=== PATIENT | female | born 1965 | race Hispanic/Latino ===

== ENCOUNTER 2018-05-06 23:31 | Inpatient (IN) | payer OTHER ==
[2018-05-06] MEDS ORDERED: Lorazepam 2 MG/ML VIAL ONE ×2 (23:36→23:48)
[2018-05-06] MEDS ORDERED: levETIRAcetam In NaCl (Iso-Os) 1,500 MG in Premix Bag 1 BAG IVPB SCH (23:45)
[2018-05-07 00:09] LABS: Bilirubin Negative (Negative); Blood, Urine Trace (Negative); Clarity CLEAR (Clear); Glucose, Urine (Dipstick) Negative (Negative); Leukocyte Negative (Negative); Nitrite Negative (Negative); Protein, Urine (Dipstick) Trace mg/dL (Neg-Trace); Specific Gravity, Urine 1.013 (1.002-1.036); Urobilinogen 0.2 mg/dL (0.2-1.0); pH, Urine 5.5 (5.0-9.0)
[2018-05-07 00:12] LABS: Bacteria/HPF None Seen HPF (None Seen); Pathc Cast-AUWi Flag 2.47 (0-2.49); RBC/HPF 0-3 HPF (0-3); Squamous Epithelial 0-3 HPF (0-3); WBC/HPF 0-3 HPF (0-3)
[2018-05-07 00:17] LABS: Amphetamine Not Detected (NotDetected); Barbiturates Screen Not Detected (NotDetected); Benzodiazepine Screen Not Detected (NotDetected); Cocaine Metabolite Screen Not Detected (NotDetected); Hyaline Casts/LPF 4-6 HYALINE CAST LPF (0-3 Hyaline); Medtox Control Line Valid? VALID (VALID); Medtox Reader # READER 1; Methadone Not Detected (NotDetected); Methamphetamine Not Detected (NotDetected); Opiate Screen Not Detected (NotDetected); Oxycodone Screen Not Detected (NotDetected); Phencyclidine (PCP) Not Detected (NotDetected); THC/Cannabinoid Screen Not Detected (NotDetected); Tricyclic Screen Not Detected (NotDetected)
--- NOTE | 2018-05-07 00:18 | PDOC.FPRHP ---
- History of Present Illness Chief Complaint: seizure History of Present Illness: Ms. Dueñas presents from the [facility] with active seizures She is intubated and sedated at time of exam, history obtained from ems and guard. Earlier this evening she was reported to have a self resolving seizure in senior living , was [facility] for monitoring. Had another seizure at that time and ems was called, pt continued to seize from triage to trauma room, was not protecting airway with O2 saturation dropping down to the 70s, intubated at that time. ED Course: ativanx3, keppra, etomidate, tish+intubation - Allergies/Adverse Reactions Allergies Allergy/AdvReac Type Severity Reaction Status Date / Time iodine Allergy Verified 05/07/18 08:10 - History PMHx: likely DMII, HLD, hypokalemia PSHx: unknown FHx: unknown Social: [facility] senior living inmate - Review of Systems ROS unobtainable: due to endotracheal tube - Vital signs BP: 11/78 HR: 87 RR: 20 Tmax: 99 Pox: 100% on Vent Wt: 93kg - Physical Exam Constitutional: NAD, other (sedated, unresponsive to voice or painful stimuli) HEENT: normocephalic and atraumatic, conjunctiva clear, MMM, other (mildly reactive pupils) Neck: supple, trachea midline, no LAD Chest: no lesions Heart: RRR, normal S1/S2, no murmurs/rubs/gallops, pulses present, no edema Lungs: CTAB, no respiratory distress Abdomen: soft, bowel sounds present, no masses/distention Musculoskeletal: normal structure Skin: no rash/lesions, good turgor Heme/Lymphatic: no unusual bruising or bleeding, no purpura FMR H&P: Results - Labs Result Diagrams: 05/07/18 03:21 05/07/18 03:21 FMR H&P: A/P - Problem List (1) Status epilepticus Current Visit: Yes Status: Acute Code(s): G40.901 - EPILEPSY, UNSP, NOT INTRACTABLE, WITH STATUS EPILEPTICUS (2) Acute respiratory failure Current Visit: Yes Status: Acute Code(s): J96.00 - ACUTE RESPIRATORY FAILURE , UNSP W HYPOXIA OR HYPERCAPNIA (3) DMII (diabetes mellitus, type 2) Current Visit: Yes Status: Acute (4) HLD (hyperlipidemia) Current Visit: Yes Status: Acute Code(s): E78.5 - HYPERLIPIDEMIA, UNSPECIFIED - Plan Status epilepticus - refractory to ativan 6mg total, loading dose of keppra given in ED 1500 mg - obtain further history from [facility] when opening in AM Acute hypoxic respiratory failure - failure to protect airway during seizure, saturation dropping to 70% - intubated 05/07 with tish and etomidate - Current vent settings: SIMV, PEEP 6.4, peak 2.8, I:E 1:2:1, ftot 20, vte 556 - currently requiring fentanyl for sedation DMII - continue metformin - mild SSI HLD - aware, continue home meds hx of pseudoseizure - aware, continue to monitor code: full, unable to confirm with pt ppx: mech, famotidine Disposition/LOS: admit to ICU, pulm consulted, monitor sedation and pressures FMR H&P: Upper Level - Pertinent history 52 yr old female with PMH of pseudoseizures, seizures, and diabetes presents from intermediate while having a reported active grand mal seizure. Apparently, this afternoon she had a seizure in her cell and was transferred to the [facility] office to be watched. She began having a seizure just before 10 pm and seized the whole way to the ER. She was given 2 mg IM Ativan and only slightly stopped. She was desatting to the 70s. Was given an oral airway and sats improved to 97. She continued to seize and was given additional 2 mg IV followed by 2 mg more IV Ativan. She was then intubated with tish and etomidate due to inability to control airway. - Pertinent findings ROS: unable to obtain PE: Gen: lying supine, intubated Eyes: pupils dilated by reactive to light Neck: supple, no lymphadenopathy Heart: RRR, no murmurs, rubs, gallops Lungs: CTAB, upper airway course breath sounds Abd: BS normal active, no palpable masses Ext: 2+ post tib pulses bilaterally, no edema benson Neuro: currently non responsive, intubated, non focal findings although sedated - Plan Date/Time: 05/07/18 0016 I, [Blanca Desir], have evaluated this patient and agree with findings/plan as outlined by sourcing internship resident. Pertinent changes/additions are listed here. 52 yr old female with status epilepticus Generalized convulsive status epilepticus -received 6 mg Ativan in ER -started on keppra 1500 mg IV -currently not requiring sedation but will consider fentanyl if needed -await records in AM from senior living Acute hypoxic respiratory failure 2/2 above -intubated, not currently requiring sedation -sats improved leukocytosis -most likely 2/2 seizure -obtain blood cultures Type 2 Diabetes -will place on SSI -qACHS accucheck -check A1C HLD -cont atorvastatin when taking PO PCP: unknown Code Status: Full, unable to discuss with patient DVT ppx: lovenox Diet: NPO Addendum - Attending - Attending Attestation Date/Time: 05/07/18 4812 I personally evaluated the patient and discussed the management with Dr. Thomas I agree with the History, Examination, Assessment and Plan documented above with any addition or exceptions noted below.
[2018-05-07 00:28] LABS: ALT (SGPT) 15 U/L (8-55); AST (SGOT) 21 U/L (5-34); Albumin 4.8 g/dL (3.5-5.0); Alkaline Phosphatase 75 U/L (40-150); Anion Gap 22 mmol/L (10-20); BUN (Urea Nitrogen) 12 mg/dL (7.0-18.7); Bilirubin, Total 0.3 mg/dL (0.2-1.2); Calc. Creatinine Clearance 0 mL/min (70-130); Carbon Dioxide 21 mmol/L (22-29); Chloride 105 mmol/L (98-107); Estimated GFR-MDRD 59; Globulin 4.2 g/dL (2.4-3.5); Glucose 206 mg/dL (70-105); Potassium 4.8 mmol/L (3.5-5.1); Sodium 143 mmol/L (136-145)
[2018-05-07 00:35] LABS: Band 18 % (5-11); Eosinophils 1 % (0-10); Hemoglobin 14.7 g/dL (12.0-16.0); Lymphocytes 21 % (21-51); MDiff Complete? YES; Mean Corpuscular HGB CONC 33.2 g/dL (32.0-36.0); Mean Corpuscular Hemoglobin 31.4 pg (27.0-31.0); Mean Corpuscular Volume 94.4 fL (78.0-98.0); Mean Platelet Volume 8.5 fL (7.4-10.4); Metamyelocyte 1 % (0-0); Monocytes 6 % (0-10); Neutrophil 53 % (42-75); PLT Morphology Comment Appears Adequate; Platelet Count 332 thou/uL (130-400); RBC Distribution Width 13.2 % (11.5-14.5); Red Blood Cell (RBC) Count 4.69 mill/uL (4.20-5.40); White Blood Cell (WBC) Count 20.7 thou/uL (4.8-10.8)
[2018-05-07 00:48] LABS: Analyzer IN Cardio ER; Base Excess (BEa) -1.8 mEq/L (-2.0 to +3.0); CO2 Tension 30.4 mmHg (35.0-45.0); Calcium, Ionized 1.11 mmol/L (1.12-1.30); Carboxyhemoglobin (COHb) 0.3 gm% (0.0-3.0); O2 Tension (PaO2) 254.8 mmHg (80.0-100.0); pH, Arterial 7.46 (7.35-7.45)
[2018-05-07 01:10] LABS: Puncture Site RRA
[2018-05-07] MEDS ORDERED: fentaNYL Citrate/PF 2,000 MCG in Sodium Chloride 0.9% 60 ML IV SCH (01:21)
--- NOTE | 2018-05-07 01:53 | PDOC.EVN ---
Addendum - Attending - Attending Attestation Date/Time: 05/07/18 0134 I personally evaluated this patient and discussed the management with Dr. Thomas I agree with the History, Examination, Assessment and Plan documented per [facility] HX and PE. 52 yo female inmate brought over from [facility] with reported prolonged seizure activity initially felt to be pseudo seizure. Patient with limited available PMHX due to closed/locked alf [facility] [place]. Patient with reported history of seizures / pseudo seizures and anticonvulsant meds recently held. Patient with reported 2 hours of seizure activity and transported to ER where she was found to be actively convulsing and given ativan 2mg x 3 and loaded with Keppra 1500 mg. Patient with poor oxygen saturation and electively intubated to protect airway with etomidate and rocuronium. CT of head with apparent prior bilateral frontal lobe CVA with right sided artifact from questionable aneurysm clip(official read Pending). Physical exam without any focal neurologic findings albeit limited by sedation. Patient currently well oxygenated unresponsive without any current sedation will rec fentanyl prn due to relatively low BP. More information should be available in AM when access to alf medical records will be available. Note current listed RX atorvastatin ASA and KCL query of EMR without any prior records.
[2018-05-07] MEDS ORDERED: Ondansetron PF 4 MG/2 ML Vial IVP PRN (02:51)
[2018-05-07] MEDS ORDERED: Ondansetron ODT 4 MG TAB PO PRN (02:51)
[2018-05-07] MEDS ORDERED: Ventilator Sedation Protocol 1 EACH FS ONE (02:51)
[2018-05-07] MEDS ORDERED: Fentanyl BOLUS 250 ML IVPB PRN (02:55)
[2018-05-07] MEDS ORDERED: DISCONTINUE PREVIOUS NARCOTIC PAIN MEDICATIONS AND BENZODIAZEPINES FS SCH (02:55)
[2018-05-07] MEDS ORDERED: Lorazepam 2 MG/ML VIAL SLOW IVP PRN (02:55)
[2018-05-07] MEDS ORDERED: Propofol 1,000 MG/100 ML VIAL IV PRN (02:55)
[2018-05-07] MEDS ORDERED: Morphine 2 MG/ML SYRINGE SLOW IVP PRN (02:55)
[2018-05-07] MEDS ORDERED: Propofol BOLUS 1,000 MG/100 ML VIAL IV PRN (02:55)
[2018-05-07 03:30] LABS: #Eosinphils 0.1 thou/uL (0.0-0.7); #Lymphocytes 1.6 thou/uL (1.20-3.40); #Monocytes 0.9 thou/uL (0.11-0.59); #Neutrophils 8.9 thou/uL (1.40-6.50); %Basophils 0.3 % (0.0-1.0); %Eosinophils 0.5 % (0.0-10.0); %Lymphocytes 14.2 % (21.0-51.0); %Monocytes 7.5 % (0.0-10.0); %Neutrophils 77.5 % (42.0-75.0); Hemoglobin 13.2 g/dL (12.0-16.0); Mean Corpuscular HGB CONC 33.8 g/dL (32.0-36.0); Mean Corpuscular Hemoglobin 31.5 pg (27.0-31.0); Mean Corpuscular Volume 93.2 fL (78.0-98.0); Mean Platelet Volume 8.3 fL (7.4-10.4); Platelet Count 243 thou/uL (130-400); Red Blood Cell (RBC) Count 4.18 mill/uL (4.20-5.40); White Blood Cell (WBC) Count 11.4 thou/uL (4.8-10.8)
[2018-05-07] MEDS: Lactated Ringer's 1,000 ML IV SCH ×2 (03:50→14:58)
[2018-05-07 03:51] LABS: ALT (SGPT) 13 U/L (8-55); AST (SGOT) 16 U/L (5-34); Albumin 4.1 g/dL (3.5-5.0); Alkaline Phosphatase 60 U/L (40-150); Anion Gap 15 mmol/L (10-20); BUN (Urea Nitrogen) 13 mg/dL (7.0-18.7); Bilirubin, Total 0.7 mg/dL (0.2-1.2); Calc. Creatinine Clearance 0 mL/min (70-130); Calcium 9.1 mg/dL (7.8-10.44); Carbon Dioxide 20 mmol/L (22-29); Chloride 108 mmol/L (98-107); Estimated GFR-MDRD 84; Globulin 3.3 g/dL (2.4-3.5); Glucose 128 mg/dL (70-105); Potassium 3.4 mmol/L (3.5-5.1); Protein, Total 7.4 g/dL (6.0-8.3); Sodium 140 mmol/L (136-145)
[2018-05-07] MEDS ORDERED: Dextrose 50% Abboject 50 ML SYRINGE SLOW IVP PRN (04:16)
[2018-05-07] MEDS ORDERED: HumaLOG 300 UNITS/3 ML VIAL SC PRN ×2 (04:16)
[2018-05-07] MEDS ORDERED: Dextrose 5% in Water 1,000 ML IV PRN (04:16)
[2018-05-07] MEDS ORDERED: CCU Electrolyte Replacement 1 EACH IVPB ONE (05:47)
[2018-05-07] MEDS ORDERED: Magnesium 2 GM/NS 0.9% 100 ML 2 GM in Premix Bag 1 BAG IVPB PRN (05:55)
[2018-05-07] MEDS ORDERED: Potassium Chloride 40 MEQ in Premix Bag 1 BAG IVPB PRN (05:55)
[2018-05-07] MEDS ORDERED: Potassium Chloride 20 MEQ TAB PO PRN (05:55)
[2018-05-07] MEDS ORDERED: Potassium Chloride 40 MEQ in Sodium Chloride 0.9% 250 ML 250 ML IVPB PRN (05:55)
[2018-05-07] MEDS ORDERED: CCU ELECTROLYTE REPLACEMENT PROTOCOL FS PRN (05:55)
[2018-05-07] MEDS ORDERED: Potassium Phosphate 12 MMOL in Sodium Chloride 0.9% 250 ML 250 ML IV PRN (05:55)
[2018-05-07] MEDS ORDERED: Potassium Phosphate 9 MMOL in Sodium Chloride 0.9% 100 ML IVPB PRN (05:55)
[2018-05-07] MEDS ORDERED: Magnesium Oxide 400 MG TAB PO PRN ×2 (05:55)
[2018-05-07] MEDS ORDERED: Potassium Phosphate 15 MMOL in Sodium Chloride 0.9% 250 ML 250 ML IV PRN (05:55)
[2018-05-07] MEDS ORDERED: Lorazepam 2 MG/ML VIAL ONE (06:05)
--- NOTE | 2018-05-07 07:37 | PDOC.EVN ---
Event Note - Event Note Event Note: Patient seen around 0400. Patient on some sedation with fentanyl but able to follow commands. Patient nodding that she can feel sensation on RUE/RLE/LLE/LUE. Movement expressed in RUE/RLE upon command. No movement of LUE/LLE. Reflexes intact to painful stimuli in bilateral LE although more pronounced in RLE. Pt nodding yes that she is able to walk prior to this hospitalization. Prelim Vrad Brain CT read reveals no acute intracranial abnormalities however there is noted to be encephalomalacia associated with old bilateral frontal lobes, left ant temporal and parietal lobes thought to be 2/2 to prior infarcts. There does appear to be old aneurysm clip in region on anterior cerebral arteries. Will place order for urgent MRI. MAP maintaining above 65, most currently 82. Will stay course with blood pressure but consider pressor agent if MAP below 65. Addendum - Attending - Attending Attestation Date/Time: 05/07/18 1601 I personally evaluated the patient and discussed the management with I agree with the History, Examination, Assessment and Plan documented above with any addition or exceptions noted below. Will ask Neurology consult r/o acute CVA verse Todds paresis post ictal.
[2018-05-07 08:23] LABS: Actual Bicarbonate (HCO3a) 24.1 mEq/L (22-28); Base Excess (BEa) 2.2 mEq/L (-2.0 to +3.0); CO2 Tension 29.4 mmHg (35.0-45.0); Calcium, Ionized 1.11 mmol/L (1.12-1.30); Carboxyhemoglobin (COHb) 0.8 gm% (0.0-3.0); Hemoglobin (Hb) 13.1 g/dL (12.0-16.0); O2 Tension (PaO2) 69.4 mmHg (80.0-100.0); Potassium - ABG Lab 3.18 mmol/L (3.70-5.30); pH, Arterial 7.53 (7.35-7.45)
--- NOTE | 2018-05-07 08:34 | PDOC.EVN ---
Event Note - Event Note Event Note: BP stable responding to commands moves extremities on both side, weaker on L Will plan to decrease sedation and extubate this AM pending pulm recs Will consulted Neurology and cont Marcio anticipate MRI pending Radiology recs because of possible aneurysm clip on CT, awaiting official read, and anticipate continuous EEG
[2018-05-07] MEDS: Famotidine 20 MG TAB PO SCH ×2 (08:51→21:20)
[2018-05-07] MEDS: levETIRAcetam In NaCl (Iso-Os) 1,000 MG in Premix Bag 1 BAG IVPB SCH ×2 (08:51→21:19)
[2018-05-07] MEDS: Famotidine/PF 20 mg/2ml Vial SLOW IVP SCH ×2 (08:51→21:20)
--- NOTE | 2018-05-07 09:58 | CT ---
PRELIMINARY REPORT/[facility]/EMERGENTY AFTER-HOURS PROCEDURE CT Head Without Contrast EXAM DATE/TIME: 05/07/2018 12:58 AM CLINICAL HISTORY: 52 years old, female; Signs and symptoms; Other: Seizure; Patient HX: Er 11; . 52 y/o f presents [facility] for sudden onset of seizures this evening. She has had multiple seizures since onset. P T is reported to have been on "medical watch. " PT is seizing on arrival to ed, and historian notes c urrent seizure began approx 15 min ago. TECHNIQUE: Axial computed tomography images of the head/brain without contrast. COMPARISON: No relevant prior studies available. FINDINGS: Brain: Areas of encephalomalacia within the frontal lobes bilaterally, as well as within the left ant erior temporal lobe and left parietal lobe, likely secondary to prior infarctions. No mass, hemorrhag e, or acute infarction. Ventricles: Normal. Bones/joints: Normal. Sinuses: Normal as visualized. Mastoid air cells: Normal as visualized. Soft tissues: Normal. Vasculature: Changes of prior left temporal craniotomy with aneurysm clip placement in the region of the proximal anterior cerebral arteries. IMPRESSION: No acute intracranial abnormality. Thank you for allowing us to participate in the care of your patient. Dictated and Authenticated by: Chemo Anderson MD 05/07/2018 2:02 AM Central Time ([place] [employer] [place]) FINAL REPORT EMERGENT AFTER HOURS NONCONTRAST CT HEAD: DATE: 05/07/2018. HISTORY: Sudden onset of seizures this evening. History of multiple prior seizures. COMPARISON: None available. IMPRESSION: 1. Large bifrontal areas of encephalomalacia much greater on the left with encephalomalacia involvin g the anterior left temporal lobe and focal area of encephalomalacia involving the left parietal lobe . Findings are likely attributable to prior areas of infarction. 2. Postsurgical changes related to left frontotemporal craniotomy defect with aneurysm clip in the m idline and to the left of midline in a supraclinoid location. 3. Calcifications left anterior frontal lobe likely related to dystrophic calcifications. There is mild ex vacuo dilatation anterior horn of each lateral ventricle greater on the left. 4. No acute intracranial abnormality is demonstrated. 5. Findings are in agreement with the preliminary report by BALDEMAR. POS: IBRAHIMA
--- NOTE | 2018-05-07 11:26 | RAD ---
PORTABLE AP CHEST XRAY: DATE: 05/07/2018. HISTORY: Sudden onset of seizure this morning. COMPARISON: None available. FINDINGS: Endotracheal tube is noted in place. The patient is rotated, but the tip of the endotracheal tube is probably within the region of the right mainstem bronchus. There is volume loss involving the left hemithorax with mild elevation of the left hemidiaphragm. There is mild increase in perihilar inters titial densities, of which is related to depth of inspiration and portable technique. The right lung otherwise appears clear. Osseous structures are intact. Nasogastric tube is noted in place with ti p overlying the expected location of the distal aspect of the gastric antrum or pylorus of the stomac h. IMPRESSION: 1. Endotracheal tube noted in place with tip overlying the expected location of the right mainstem b ronchus with the tip of the endotracheal tube at the level of the T6 vertebral body. Endotracheal tu be should be withdrawn. 2. Shallow depth of inspiration, but there does appear to be a greater degree of volume loss in the left hemithorax with mild interstitial and patchy densities present probably related to volume loss. Followup chest x-ray after repositioning of the endotracheal tube is recommended. 3. The above findings concerning positioning of the endotracheal tube were discussed with Heather in the CCU on 05/07/2018 at 0926 hours. She noted that the endotracheal tube had been withdrawn. CODE CR POS: ROMMEL
--- NOTE | 2018-05-07 12:13 | CON ---
DATE OF CONSULTATION: 05/07/2018 SERVICE: Pulmonary Medicine. REASON FOR CONSULT: ICU patient. HISTORY OF PRESENT ILLNESS: The patient is a 52-year-old female with past medical history significant for both seizures and pseudoseizures. Recently, she was worked up for seizure disorder. She had some pseudoseizures in that workup. Apparently, all of her antiepileptic drugs were discontinued. In this setting, she went back to her intermediate unit. She then had a true seizure. This was observed for a period of over an hour before she was transported to the emergency department. She was brought here by a van. All told, she was likely having seizure for 90 to 120 minutes before it was finally broken. She was intubated. Overnight, her mentation has improved a little bit. She is actually following some simple commands, but remains in a postictal state. She has been on no sedation since she has been here on mechanical ventilation without any difficulties. She cannot provide any additional elements of the history at this point. There are no reports of fevers. She cannot have an MRI right now because it is not clear whether or not she has aneurysmal clips. PAST MEDICAL HISTORY: 1. Seizure disorder. 2. Pseudoseizures. 3. Type 2 diabetes mellitus. 4. Dyslipidemia. 5. History of hypokalemia. PAST SURGICAL HISTORY: Unknown. SOCIAL HISTORY: Negative for alcohol, tobacco, or illicit drug use currently. She is a [employer] [facility] inmate. FAMILY HISTORY: Noncontributory. ALLERGIES: IODINE. MEDICATIONS: List of her inpatient medications was reviewed. I have bumped the dose of her Keppra to 1500 twice daily, which apparently is what she uses at home. REVIEW OF SYSTEMS: Cannot be obtained as the patient is currently intubated and postictal. PHYSICAL EXAMINATION: VITAL SIGNS: Afebrile, pulse 70, blood pressure 135/72, respirations 13, and saturation 99% on room air. Temperature maximum is 100.0 and it has been climbing for the duration of the evening. LABORATORY DATA: WBC 11.4 and downtrending, hemoglobin 13.2, and platelets 243,000. PH 7.46, pCO2 of 30.4, pO2 of 254 on 100% FiO2 at that time. Potassium 3.4. Basic metabolic profile and liver function studies were otherwise unremarkable. Prolactin 37.5, elevated. TSH 2.1. Magnesium 1.7. Hemoglobin A1c 1.7. Of note, her anion gap on presentation was over 22, likely corresponding to an elevated lactate, which was not checked. Urinalysis is unremarkable. Urine drug screen is negative. IMAGING DATA: 1. CT of the brain demonstrates no blood. 2. Chest x-ray demonstrates right mainstem airway. She has volume loss on the left. There is good aeration on the right. Low lung volumes accentuate interstitial markings. Enteric catheter courses midline below the level of the diaphragm. ASSESSMENT: 1. Acute hypoxic respiratory failure, minimal. 2. Aspiration pneumonitis versus community-acquired pneumonia. 3. Seizure, prolonged. 4. Pseudo-seizure. DISCUSSION AND PLAN: We will continue our antiepileptic drugs. We will increase the dose to 1500 mg of Keppra twice daily. The patient is coming around very slowly. This is consistent with a postictal state and I am doubtful this was a pseudoseizure event given how comfortable she is on mechanical ventilation with no sedation. Additionally, she had very severe electrolyte derangement consistent with a true seizure. As such, on discharge from the hospital, she will likely need to be back on her medications. MRI is not necessary in this setting as she is now moving her left upper and lower extremities. My suspicion is that she had some degree of Scott's paralysis, which is resolving. Pulmonary/Critical Care will continue to follow along in this location, but the thing that prevents us from extubating the patient at this point is her continued decreased mentation, which is improving. CRITICAL CARE TIME: 30 minutes. Job ID: [id number]
[2018-05-07 12:58] LABS: Puncture Site RRA
[2018-05-08] MEDS: Lactated Ringer's 1,000 ML IV SCH ×2 (01:19→09:44)
--- NOTE | 2018-05-08 01:39 | CON ---
DATE OF CONSULTATION: 05/07/2018 CHIEF COMPLAINT: Seizure, possible status epilepticus, and left-sided weakness. HISTORY OF PRESENT ILLNESS: The patient is unable to give much history, she is intubated and is on a ventilator. The patient apparently was brought in from the [facility] at the [facility] with active seizures. Per chart, the patient was noted to have self resolving seizure in the residential, was sent to the [facility] office was monitoring, she then had another seizure, EMS was called. The patient continues to seize from triage to trauma room not protecting her airway. Her O2 saturations were dropping and she went into the respiratory failure and she was intubated. Per ER chart, the patient was in status for approximately 15 minutes or so and she has received Ativan and her seizures subsided after administration of Keppra. Also notable is the patient was suspected as having pseudoseizure versus true seizure and about 2 weeks ago, Keppra was stopped by her neurologist. The patient was having some left-sided weakness notable since admission. At this time, MRI cannot be done immediately due to presence of aneurysm and plan is to extubate her provided she continues to be responsive. PAST MEDICAL HISTORY: Previous medical history per chart is diabetes, hypertension, and hyperlipidemia. MEDICATIONS: At the residential are; 1. Metformin 500 mg b.i.d. 2. Atorvastatin 20 mg per day. 3. Potassium chloride 10 mEq per day. 4. Ibuprofen 800 mg t.i.d. PAST SURGICAL HISTORY: She seemed to have had aneurysm based on the CT scan, this aneurysm seems to have been kicked and no other surgical history is available. FAMILY HISTORY: Unavailable. ALLERGIES: NO KNOWN DRUG ALLERGIES PER CHART. SOCIAL HISTORY: She is in the adult residential system as an inmate. As that is unclear if she is a smoker or alcoholic. REVIEW OF SYSTEMS: Unable to obtain. LABORATORY RESULTS: White count 11.4, hemoglobin 13.2, hematocrit 38.9, and platelets 243. Chemistry; sodium 140, potassium 3.4, chloride 108, bicarb 20, BUN 13, creatinine 0.73, prolactin 37.51, and TSH 2.1. Liver functions are within normal limit. UA is negative and toxicology screen is negative. CT of the head was performed and on the CT scan, she has evidence of encephalomalacia within frontal lobes bilaterally as well as within the left anterior temporal lobe, left parietal lobe likely secondary to prior infarcts and prior left temporal craniotomy with aneurysm clip placement in the region and of the proximal anterior cerebral artery and there is also classification within the left anterior frontal lobe likely related to dystrophic calcifications. Mild ex-vacuo dilatation, anterior horn of each lateral ventricle greater on the left. Chest x-ray showed shallow depth of inspiration with volume loss in the left hemithorax and endotracheal tube placement. PHYSICAL EXAMINATION: VITAL SIGNS: Blood pressure was 135/75, pulse is 95. The patient is afebrile and she is on mechanical ventilator. The patient was examined off sedation and temperature is 98.6 degrees Fahrenheit. GENERAL APPEARANCE: She seems to be responsive to verbal commands and tries to follow commands. HEENT: Pupils are reactive, that is 4+ bilaterally. No facial asymmetry could be appreciated. Normal gag. CHEST: Clear. Vesicular breathing. ABDOMEN: Soft. NEUROLOGIC: She is responsive to verbal command. She is able to follow command and cranial nerve exam, pupils 4 mm bilaterally. No facial asymmetry was noted. Gag is present. Motor examination, bulk normal and tone normal. She seems to have an approximate gross strength of 4/5 on the right and 3-/5 on the left side and deep tendon reflexes were 2+ throughout. Sensory, cerebral, and gait not testable. IMPRESSION: She is a 52-year-old lady with prior history of diabetes and hypertension, and hyperlipidemia. She seems to have had a prior aneurysm repair in the left frontotemporal areas as noted in the CT findings. She also has large right frontal areas of encephalomalacia suggestive of prior infarction based on CT. Her examination shows weakness on the left side. At the moment, the patient is not seizing, has remained stable since addition of Keppra. I suspect this patient may have had a stroke in presence of baseline cerebral ischemia and aneurysm in the past plus encephalomalacia and she had seizure as a result of stroke. It is unclear as to what time the stroke findings were noted. Based on the history available, this could also be a Scott palsy. Diagnosis is most consistent with acute cerebrovascular accident in the setting of status epilepticus, which has now resolved, but she has persistent left-sided weakness. TREATMENT RECOMMENDATIONS: I wanted to get a CT angiogram, but RN called me back stating the patient has allergy to iodine. Therefore, we are unable to obtain a CT angio to study her vasculature. We will now have to wait for an MRI to be done in order for us to study the new area of infarct. For now, continue Keppra for seizure and also monitor for any new seizure activity and once the patient is extubated , we might be able to obtain more history and a better neurological examination as well. The patient is currently being sedated using fentanyl due to ventilation. I will see the patient again tomorrow. Thank you for consultation request. Job ID: [id number]
[2018-05-08 06:55] LABS: Anion Gap 11 mmol/L (10-20); BUN (Urea Nitrogen) 5 mg/dL (7.0-18.7); Calc. Creatinine Clearance 0 mL/min (70-130); Calcium 8.7 mg/dL (7.8-10.44); Carbon Dioxide 26 mmol/L (22-29); Chloride 104 mmol/L (98-107); Estimated GFR-MDRD Greater than 90; Glucose 118 mg/dL (70-105); Potassium 3.2 mmol/L (3.5-5.1); Sodium 138 mmol/L (136-145)
--- NOTE | 2018-05-08 07:06 | PDOC.FM ---
- Subjective Subjective: Patient extubated about 0320. No respiratory distress. This AM patient is able to follow commands, raspy voice likely 2/2 intubation. Patient is able to say that she had her previous neurosurgery with Dr. Morris at [facility]. She denies shortness of breath at this time. States she still feels drowsy, nods yes that it is somewhat difficult to talk. States she has a headache. - Objective Vital Signs & Weight: Vital Signs (12 hours) Pulse Resp Pulse Ox 05/08/18 04:00 99 05/08/18 03:10 83 05/08/18 02:00 19 05/08/18 00:09 84 05/08/18 00:00 20 05/07/18 22:12 73 05/07/18 22:00 20 05/07/18 20:00 19 97 05/07/18 19:07 85 Most Recent Monitor Data Heart Rate from ECG 78 NIBP 137/78 NIBP BP-Mean 97 Respiration from ECG 24 SpO2 99 I&O: 05/07/18 05/08/18 05/09/18 06:59 06:59 06:59 Intake Total 2963 Output Total 510 2355 Balance -510 608 Result Diagrams: 05/07/18 03:21 05/08/18 06:24 Phys Exam - Physical Examination Constitutional: NAD HEENT: PERRLA dry oral mucosa Respiratory: no wheezing, clear to auscultation bilateral no respiratory distress Cardiovascular: RRR, no significant murmur Gastrointestinal: soft, non-tender, no distention, positive bowel sounds Musculoskeletal: no edema, pulses present Neurological: non-focal (lifts legs off the bed) Able to hold arms out straight for 10 sec, 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 CN II-XII grossly intact, no facial droop or slurred speech, wiggles toes Psychiatric: normal affect, A&O x 3 Skin: no rash, cap refill <2 seconds Dx/Plan (1) Seizure disorder Code(s): G40.909 - EPILEPSY, UNSP, NOT INTRACTABLE, WITHOUT STATUS EPILEPTICUS Status: Acute (2) Acute respiratory failure Code(s): J96.00 - ACUTE RESPIRATORY FAILURE, UNSP W HYPOXIA OR HYPERCAPNIA Status: Acute (3) DMII (diabetes mellitus, type 2) Status: Acute (4) HLD (hyperlipidemia) Code(s): E78.5 - HYPERLIPIDEMIA, UNSPECIFIED Status: Acute (5) Status epilepticus Code(s): G40.901 - EPILEPSY, UNSP, NOT INTRACTABLE, WITH STATUS EPILEPTICUS Status: Acute - Plan Plan: # Seizure disorder vs CVA - on keppra 1500mg IV BID, bedside swallow pending - Patient had previous neurosurgery w/ Dr. 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 operator strength deficit, gloablly large improvement from yesterday, suspect prolong post-ictal state - Prolactin 37.5 - Neurology consulted, appreciate recs # status epilepticus- resolved # Acute hypoxic respiratory failure-resolved - extubated 05/08 - appreciate pulm recs # Type 2 Diabetes - A1C 6.0 - will restart home meds pending bedside swallow study # HLD -home meds DVT ppx: lovenox Diet:pending swallow Dispo: possible transfer to stroke floor later today pending pulm/neuro recs, awaiting records before further imaging, likely inpatient 2-3 more days Addendum - Attending - Attending Attestation Date/Time: 05/08/18 1141 I personally evaluated the patient and discussed the management with Dr. Angie Clark I agree with the History, Examination, Assessment and Plan documented above with any addition or exceptions noted below. Strength markedly improved responsive will obtain MR from [place] regard prior CVA and presumed clip of aneursym for suitability for MRI.
[2018-05-08] MEDS: Acetaminophen 325 MG TAB PO PRN ×2 (07:42→12:37)
[2018-05-08] MEDS: Famotidine 20 MG TAB PO SCH (07:42)
[2018-05-08] MEDS: Famotidine/PF 20 mg/2ml Vial SLOW IVP SCH (07:43)
--- NOTE | 2018-05-08 08:42 | PDOC.EVN ---
Event Note - Event Note Event Note: started lovenox for dvt ppx no hemorrhage note on CT head
[2018-05-08] MEDS: levETIRAcetam In NaCl (Iso-Os) 1,000 MG in Premix Bag 1 BAG IVPB SCH (09:41)
[2018-05-08] MEDS: Enoxaparin Sodium 40 MG/0.4 ML SYRINGE SC SCH (09:44)
[2018-05-08] MEDS ORDERED: Lorazepam 2 MG/ML VIAL SLOW IVP PRN (11:20)
--- NOTE | 2018-05-08 11:32 | PRG ---
DATE OF SERVICE: 05/08/2018 SERVICE: Pulmonary Medicine. INTERVAL HISTORY: The patient is doing really well from respiratory standpoint. She met criteria for extubation about 3 o'clock in the morning. As such, we successfully liberated her from mechanical ventilator. Otherwise, there have been no events overnight. The [facility] called from the snf system. I have suggested to them that she did have a true spell. I am not certain if this was a seizure or not because I did not witness it. That being said, she did have findings that could be consistent with an abrupt seizure that resolved. She had a very severe metabolic derangement and elevated prolactin. These things are rapidly improved. We did not treat any type of infectious symptom or septic shock. As such, I am suspicious that she had a true event here. PHYSICAL EXAMINATION: VITAL SIGNS: Afebrile. Pulse 77, blood pressure 109/60, respirations 23, and saturation 94% on room air. GENERAL: The patient is awake and alert, in no apparent distress. LUNGS: Excellent air entry. I do not hear any wheezing, rhonchi, or crackles present. HEART: Normal rate and regular. ABDOMEN: Soft, nontender, and nondistended. Bowel sounds are positive. MUSCULOSKELETAL: No cyanosis or clubbing. No pitting in the bilateral lower extremities. : Foster catheter in place. LABORATORY DATA: Potassium 3.2. Basic metabolic profile is otherwise unremarkable. Blood cultures x2 are unremarkable. ASSESSMENT: 1. Acute hypoxic respiratory failure, resolved. 2. Aspiration pneumonitis versus acquired pneumonia. 3. Seizure, prolonged. 4. Pseudoseizure. DISCUSSION AND PLAN: I do believe the patient has both pseudoseizures and true seizures. Antiepileptic drugs are indicated moving forward. Potassium will be replaced today. Pulmonary Critical Care will sign off once the patient leaves the ICU. Please call with additional questions or concerns. Job ID: [id number]
[2018-05-08] MEDS: Potassium Chloride 20 MEQ TAB PO SCH ×2 (12:37→16:35)
--- NOTE | 2018-05-08 14:35 | PRG ---
DATE OF SERVICE: 05/08/2018 CHIEF COMPLAINT: Seizures. INTERVAL HISTORY: The patient reports that she has had seizures for 16 years. They have mostly been well controlled. She had a stroke which affected her left side and this is as a result of the aneurysm from about 17 years ago. She stated she was in a coma for about 3 years. She tends to make out in a rash with iodine. She did have prior MRI with her aneurysm clip. Overall, she is feeling better today. No further seizures were noted. The left-sided weakness is improved. LABORATORY WORKUP: White count 11.4, hemoglobin 13.2, hematocrit 38.9, platelet count 243. Chemistry; sodium 138, potassium 3.2, chloride 104, bicarb 26, BUN 5, creatinine 0.58. No further imaging reports are available. PHYSICAL EXAMINATION: VITAL SIGNS: The patient's blood pressure was 109/60 and pulse is 76, temperature 99.8. GENERAL APPEARANCE: Well-built, well-nourished lady who is able to talk to us. NEUROLOGICAL: She is oriented to time and place. Cranial nerves; no facial asymmetry was noted. Normal extraocular movements. 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 Normal strength in both upper and lower extremities bilaterally. Normal sensation bilaterally. IMPRESSION: The patient with seizures and prior aneurysm and she had some left-sided weakness yesterday, it could be due to worsening of her weakness due to seizures. At this time, weakness has resolved. 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 RECOMMENDATIONS: I discussed her case with the primary admitting physician and I suggested that she either have a CT angio of the head and neck or an MRI of the brain prior to her discharge. We will keep her on the same dose on the [facility]. Please call Neurology if you have any further questions. Job ID: [id number]
[2018-05-08] MEDS: metFORMIN 500 MG TAB PO SCH (16:35)
[2018-05-08] MEDS: levETIRAcetam 500 MG TAB PO SCH (20:52)
[2018-05-09 05:22] LABS: #Basophils 0.1 thou/uL (0.0-0.2); #Eosinphils 0.2 thou/uL (0.0-0.7); #Lymphocytes 3.1 thou/uL (1.20-3.40); #Monocytes 0.8 thou/uL (0.11-0.59); #Neutrophils 5.6 thou/uL (1.40-6.50); %Basophils 0.6 % (0.0-1.0); %Eosinophils 2.4 % (0.0-10.0); %Lymphocytes 31.4 % (21.0-51.0); %Neutrophils 57.6 % (42.0-75.0); Hemoglobin 11.9 g/dL (12.0-16.0); Mean Corpuscular Volume 93.9 fL (78.0-98.0); Mean Platelet Volume 8.2 fL (7.4-10.4); Platelet Count 219 thou/uL (130-400); RBC Distribution Width 13.1 % (11.5-14.5); Red Blood Cell (RBC) Count 3.85 mill/uL (4.20-5.40); White Blood Cell (WBC) Count 9.8 thou/uL (4.8-10.8)
[2018-05-09 05:39] LABS: Anion Gap 11 mmol/L (10-20); BUN (Urea Nitrogen) 8 mg/dL (7.0-18.7); Calc. Creatinine Clearance 166 mL/min (70-130); Calcium 8.7 mg/dL (7.8-10.44); Carbon Dioxide 27 mmol/L (22-29); Chloride 106 mmol/L (98-107); Estimated GFR-MDRD Greater than 90; Glucose 87 mg/dL (70-105); Magnesium 2.2 mg/dL (1.6-2.6); Potassium 3.6 mmol/L (3.5-5.1); Sodium 140 mmol/L (136-145)
--- NOTE | 2018-05-09 06:53 | PDOC.FM ---
- Subjective Subjective: This morning patient states she is feeling well overall. Patient states that she has a couple sores on the inside of her mouth from biting her lips during the seizure but otherwise has no complaints. The patient states she has been able to walk to the restroom but other than that has not tried walking the hallways yet, she feels that she does have her strength back. She is tolerating PO intkae without difficultly. No seizure activity overnight. Records have not been received from [facility] as of yet. Patient had aneurysm clips placed 17 years ago. States she had an MRI in [facility] 1 year ago. - Objective Vital Signs & Weight: Vital Signs (12 hours) Temp Pulse Resp BP Pulse Ox 05/09/18 03:55 98.1 F 63 16 135/69 96 05/09/18 00:00 98.0 F 70 20 118/75 94 L 05/08/18 19:29 98.8 F 70 16 113/75 96 Weight Weight 93.894 kg Most Recent Monitor Data Heart Rate from ECG 83 NIBP 107/68 NIBP BP-Mean 81 Respiration from ECG 18 SpO2 95 I&O: 05/07/18 05/08/18 05/09/18 06:59 06:59 06:59 Intake Total 2963 1336 Output Total 510 2355 925 Balance -510 608 411 Result Diagrams: 05/09/18 04:42 05/09/18 04:42 Phys Exam - Physical Examination Constitutional: NAD HEENT: PERRLA, moist MMs wounds from biting lower lip and tongue, hemostatic Neck: no nodes Respiratory: no wheezing, clear to auscultation bilateral Cardiovascular: RRR, no significant murmur Gastrointestinal: soft, non-tender, no distention, positive bowel sounds Musculoskeletal: no edema, pulses present Neurological: non-focal, moves all 4 limbs handle finisher strength equal bilaterally, lifts legs off the bed, no facial droop no slurred speech Psychiatric: normal affect, A&O x 3 Skin: no rash, cap refill <2 seconds Dx/Plan (1) Seizure disorder Code(s): G40.909 - EPILEPSY, UNSP, NOT INTRACTABLE, WITHOUT STATUS EPILEPTICUS Status: Acute (2) Acute respiratory failure Code(s): J96.00 - ACUTE RESPIRATORY FAILURE, UNSP W HYPOXIA OR HYPERCAPNIA Status: Acute (3) DMII (diabetes mellitus, type 2) Status: Acute (4) HLD (hyperlipidemia) Code(s): E78.5 - HYPERLIPIDEMIA, UNSPECIFIED Status: Acute (5) Status epilepticus Code(s): G40.901 - EPILEPSY, UNSP, NOT INTRACTABLE, WITH STATUS EPILEPTICUS Status: Acute - Plan Plan: # Seizure disorder vs CVA - on keppra 1500mg IV BID, will switch to oral - Patient had previous neurosurgery w/ Dr. Morris at [facility], records requested - will pursue further imaging based on records, need to know whether aneurysm clips are MRI compatible - CTA head may be an option, iodine allergy would need 12hrs of prep - still with handle finisher strength deficit, gloablly large improvement from yesterday, suspect prolong post-ictal state now resolved - Prolactin 37.5 - Neurology consulted, appreciate recs - Awaiting records from [facility] before pursuing MRI, requested that [facility] records dept be called again today during business hours # status epilepticus- resolved # Acute hypoxic respiratory failure-resolved - extubated 0320 05/08 - appreciate pulm recs # Type 2 Diabetes - A1C 6.0 - home meds # HLD -home meds DVT ppx: lovenox Diet: regular Dispo: ready for d/c pending MRI which is dependent upon receiving outside records Addendum - Attending - Attending Attestation Date/Time: 05/09/18 1305 I personally evaluated the patient and discussed the management with Dr. Clark. I agree with the History, Examination, Assessment and Plan documented above with any addition or exceptions noted below. The patient is doing well. No seizure activity overnight. Waiting on records from [place] regarding previous MRI brain. If she did in fact have an MRI, then pt can have an mri brain today. If no record, will pretreat iwth prednisone for [address] with contrast due to iodine allergy.
[2018-05-09] MEDS: Atorvastatin Calcium 20 MG TAB PO SCH (08:44)
[2018-05-09] MEDS: Enoxaparin Sodium 40 MG/0.4 ML SYRINGE SC SCH (08:44)
[2018-05-09] MEDS: metFORMIN 500 MG TAB PO SCH ×2 (08:44→17:05)
[2018-05-09] MEDS: Potassium Chloride 10 MEQ TAB PO SCH (08:44)
[2018-05-09] MEDS: levETIRAcetam 500 MG TAB PO SCH ×2 (08:44→20:27)
[2018-05-09] MEDS ORDERED: predniSONE 50 MG TAB PO SCH (13:00)
[2018-05-09] MEDS ORDERED: Lidocaine Viscous Sol 2% 15 ml UD Cup SSP PRN (13:34)
[2018-05-09 14:26] VITALS: BMI 40.4
[2018-05-09] MEDS: predniSONE 50 MG TAB PO SCH (20:27)
[2018-05-09] MEDS ORDERED: diphenhydrAMINE 50 MG CAP PO SCH (21:00)
[2018-05-10] MEDS: predniSONE 50 MG TAB PO SCH ×2 (01:40→08:57)
[2018-05-10 05:32] LABS: Anion Gap 14 mmol/L (10-20); BUN (Urea Nitrogen) 10 mg/dL (7.0-18.7); Calc. Creatinine Clearance 142 mL/min (70-130); Calcium 9.5 mg/dL (7.8-10.44); Carbon Dioxide 24 mmol/L (22-29); Chloride 104 mmol/L (98-107); Estimated GFR-MDRD Greater than 90; Glucose 153 mg/dL (70-105); Potassium 4.1 mmol/L (3.5-5.1); Sodium 138 mmol/L (136-145)
[2018-05-10 07:40] VITALS: BP 99/57; TEMP 97.9
[2018-05-10] MEDS ORDERED: diphenhydrAMINE 50 MG CAP PO SCH (08:00)
--- NOTE | 2018-05-10 08:10 | PDOC.FM ---
- Subjective Subjective: Patient states she is feeling well this AM. No headache or seizure activity overnight. She states she did have some nausea starting last night. No vomiting. No weakness, has been able to walk the hallway. - Objective Vital Signs & Weight: Vital Signs (12 hours) Temp Pulse Resp BP Pulse Ox 05/10/18 07:33 97.9 F 57 L 18 99/57 L 98 05/10/18 04:18 99.0 F 63 16 115/56 L 93 L 05/10/18 00:00 98.6 F 69 16 113/60 96 05/09/18 20:10 95 Weight Admit Weight 93.894 kg Weight 89.443 kg Most Recent Monitor Data Heart Rate from ECG 83 NIBP 107/68 NIBP BP-Mean 81 Respiration from ECG 18 SpO2 95 I&O: 05/09/18 05/10/18 05/11/18 06:59 06:59 06:59 Intake Total 1336 1320 Output Total 925 Balance 411 1320 Result Diagrams: 05/09/18 04:42 05/10/18 04:24 Phys Exam - Physical Examination Constitutional: NAD HEENT: PERRLA, moist MMs Neck: no nodes, full ROM Respiratory: no wheezing, clear to auscultation bilateral Cardiovascular: RRR, no significant murmur Gastrointestinal: soft, non-tender, no distention, positive bowel sounds Musculoskeletal: no edema, pulses present Neurological: non-focal, moves all 4 limbs Psychiatric: normal affect, A&O x 3 Skin: cap refill <2 seconds Dx/Plan (1) Seizure disorder Code(s): G40.909 - EPILEPSY, UNSP, NOT INTRACTABLE, WITHOUT STATUS EPILEPTICUS Status: Acute (2) Acute respiratory failure Code(s): J96.00 - ACUTE RESPIRATORY FAILURE, UNSP W HYPOXIA OR HYPERCAPNIA Status: Acute (3) DMII (diabetes mellitus, type 2) Status: Acute (4) HLD (hyperlipidemia) Code(s): E78.5 - HYPERLIPIDEMIA, UNSPECIFIED Status: Acute (5) Status epilepticus Code(s): G40.901 - EPILEPSY, UNSP, NOT INTRACTABLE, WITH STATUS EPILEPTICUS Status: Acute - Plan Plan: # Seizure disorder vs CVA - on keppra - had true seizure - awaiting imaging before d/c-> r/o CVA contributing to seizure per neuro recs - Neurology consulted, appreciate recs # status epilepticus- resolved # Acute hypoxic respiratory failure-resolved - extubated 05/08 - appreciate pulm recs # Type 2 Diabetes - A1C 6.0 - home meds # HLD -home meds DVT ppx: lovenox Diet: regular Dispo: ready for d/c after CTA and read today
[2018-05-10] MEDS: Atorvastatin Calcium 20 MG TAB PO SCH (08:57)
[2018-05-10] MEDS: levETIRAcetam 500 MG TAB PO SCH (08:57)
[2018-05-10] MEDS: Enoxaparin Sodium 40 MG/0.4 ML SYRINGE SC SCH (08:58)
[2018-05-10] MEDS: Potassium Chloride 10 MEQ TAB PO SCH (08:58)
[2018-05-10] MEDS: metFORMIN 500 MG TAB PO SCH (09:03)
--- NOTE | 2018-05-10 10:57 | CT ---
CT ARTERIOGRAM HEAD WITH IV CONTRAST AND 3D MIP IMAGING CT BRAIN WITH AND WITHOUT IV CONTRAST: History Seizure. CVA. COMPARISON: 05/07/2018. FINDINGS: There is no evidence of acute intracranial hemorrhage or infarct. No abnormal areas of contrast enha ncement are demonstrated. Postoperative changes include hemostasis clips at the frontal floor and ar e stable. Good flow into each internal carotid system and the vertebrobasilar system. [place] is inta ct. No arterial defects apparent. Large areas of encephalomalacia at each frontal lobe and the left parietal lobe are stable. Dystrophic calcification at the left frontal lobe is unchanged. IMPRESSION: No acute arterial abnormalities are demonstrated. Chronic-type findings are stable. Findings were called to Dr. Diallo at 1033 hours. CODE CR POS: ROMMEL
--- NOTE | 2018-05-10 15:56 | DIS ---
DATE OF ADMISSION: 05/07/2018 DATE OF DISCHARGE: 05/10/2018 RESIDENT: Fam Clark MD ADMITTING PHYSICIAN AND ATTENDING PHYSICIAN: Geovanny Markham MD DISCHARGE ATTENDING PHYSICIAN: Belkys Carmona MD CONSULTS: Neurology, Pulmonology. PROCEDURES: CTA of brain with and without contrast. There is no sign of acute stroke, no acute process. PRIMARY DIAGNOSIS: Status epilepticus, resolved. SECONDARY DIAGNOSES: Seizure disorder, acute hypoxic respiratory failure, type 2 diabetes, hyperlipidemia. DISCHARGE MEDICATIONS: 1. Keppra 1500 mg t.i.d. 2. Atorvastatin 20 mg daily. 3. Aspirin 81 mg. HISTORY OF PRESENT ILLNESS AND HOSPITAL COURSE: This is a 52-year-old female, who comes in with status epilepticus. She was noted to have seizure-like activity at the longterm for about 1 to 2 hours before being transferred to the emergency department. She has history of pseudoseizures. The patient was intubated en route to the ED as she had inability to protect her airway. The patient's seizure broke after being administrated Ativan in the ER x3. The patient was also given loading dose of Keppra in the ED. The patient remained intubated about 24 to 30 hours with minimal sedation as she was in postictal state. She had laboratory abnormalities concordant with true seizure. She had metabolic acidosis, lactic acid elevated , and prolactin of 37. The patient's Keppra was discontinued about 10 days ago by outpatient Neurology after she had reported normal EEG. Records could not be obtained. The patient stated that she had cerebral aneurysm with clips about 17 years ago at [facility] [place], operated by [facility] in [place]. Records were requested multiple times from this hospital, but could not be obtained. The psychological anthropologist states that they have been requesting records for 3 months, they were not able to obtain any records. Ultimately, the patient had CTA to rule out CVA secondary to the patient's history of CVA, which could have contributed to her seizure. The CTA that was completed showed no signs of acute stroke. Therefore, it seems like this was true seizure disorder. The patient has been started on Keppra and has been stable throughout her time at the hospital. No further seizure activity after time of admission. DISPOSITION: Stable. DISCHARGE INSTRUCTIONS: Location: [facility]. Diet: Regular. Activity: As tolerated. FOLLOWUP: 1. Outpatient Neurology in 1 to 2 weeks. 2. Primary care provider in 1 week. 3. The patient should be continued on Keppra indefinitely as stopping Keppra could lead to further seizures. The patient should also continue atorvastatin and aspirin for CVA prevention. Job ID: [id number] ANGUS
== END 2018-05-10 11:30 | DRG 100 ==
LOC: ERS 23:31 → CCU 05-07 00:05 → 2SE 05-08 13:02
PROVIDERS: ADMIT Family Medicine; ATTEND Family Medicine
PROC: 0BH17EZ Insertion of Endotracheal Airway into Trachea, Via Natural or Artificial Opening (ICD-10-PCS; principal; 2018-05-07)
PROC: 5A1945Z Respiratory Ventilation, 24-96 Consecutive Hours (ICD-10-PCS; 2018-05-07)
DX: G40.901 Epilepsy, unspecified, not intractable, with status epilepticus (principal); J96.01 Acute respiratory failure with hypoxia; J69.0 Pneumonitis due to inhalation of food and vomit; E11.9 Type 2 diabetes mellitus without complications; E78.5 Hyperlipidemia, unspecified; E87.6 Hypokalemia; G93.89 Other specified disorders of brain; I10 Essential (primary) hypertension; Z79.84 Long term (current) use of oral hypoglycemic drugs
CPT/HCPCS: 31500; 36415; 36416; 51702; 70450; 70496; 71045; 80048; 80053; 80306; 81003; 81015; 82805; 83036; 83735; 84146; 84443; 85025; 87040; 93005; 94002; 94003; 96361; 96365; 96372; 96374; 96375; 96376; G8978-GP-CI; G8979-GP-CI; G8980-GP-CI; J1650; J1953; J2060; J3010; J3475; J3480; J7050; S0028